=== PATIENT | male | born 1985 | race Two or more races ===

== ENCOUNTER 2024-09-12 13:39 | Emergency (ER) | payer BC ==
[~2024-09-12] VITALS: Ht 177.8 cm; Wt 88.5 kg
[2024-09-12 13:45] VITALS: TEMP 98.2
[2024-09-12] MEDS: IV NS 0.9% 1,000 ML BAG IV ONE (14:03)
[2024-09-12 14:04] LABS: PLATELET COUNT (AUTO) 141 K/uL (150-450); RED BLOOD CELL COUNT(AUTO) 5.11 MIL/uL (4.5-6.0); RED CELL DISTRIBUTION WIDTH 13.7 % (11.5-15.0); WHITE BLOOD COUNT (AUTO) 4.7 K/uL (4.3-11.0)
[2024-09-12 14:11] LABS: CALCIUM, SERUM 8.9 mg/dL (8.5-10.1); CREATININE 1.1 mg/dL (0.6-1.3); SODIUM SERUM 137.0 mmol/L (136-145); UREA NITROGEN, BLOOD 14.0 mg/dL (7-18)
[2024-09-12 14:17] LABS: ASPARTATE AMINOTRANSFERASE 31.0 U/L (15-37); TOTAL PROTEIN, SERUM 7.3 g/dL (6.4-8.2)
[2024-09-12 15:23] LABS: APPEARANCE,URINE CLEAR (CLEAR); BLOOD, URINE TRACE-INTA Ery/uL (NEGATIVE); LEUKOCYTE ESTERASE ,URINE NEGATIVE (NEGATIVE); NITRITE, URINE NEGATIVE (NEGATIVE); UGLUCOSE NEGATIVE (NEGATIVE)
[2024-09-12] MEDS ORDERED: METO-295 PO (15:27)
[2024-09-12 15:37] LABS: ADD URINE CULTURE NO; SQUAMOUS EPITHELIAL CELL,UR None Seen /HPF (None Seen)
[2024-09-12 15:50] VITALS: BP 123/75; O2SAT 99
== END 2024-09-12 15:50 | disposition home or self-care (01) ==
LOC: ER 13:43
DX: K52.9 Noninfective gastroenteritis and colitis, unspecified (principal)
CPT/HCPCS: 99283; 96360; 85025; 80048; 87086; 83690; 80076; 81001; 36415; J7030

== ENCOUNTER 2024-10-24 10:10 | Emergency (ER) | payer BC ==
[~2024-10-24] VITALS: Ht 177.8 cm; Wt 83.9 kg
[~2024-10-24 10:10] MED LIST: METO-295 PO
[2024-10-24] MEDS ORDERED: CIPR-262 PO (10:30)
[2024-10-24 10:39] VITALS: BP 126/80; TEMP 98.3; O2SAT 99
== END 2024-10-24 10:39 | disposition home or self-care (01) ==
LOC: ER 10:17
DX: K62.89 Other specified diseases of anus and rectum (principal); R19.7 Diarrhea, unspecified; Z60.2 Problems related to living alone